=== PATIENT | male | born 1970 | race Caucasian/White ===

== ENCOUNTER → 2021-12-29 | Day surgery (SDC) | payer BC ==
[2021-12-28 13:32] LABS: BASOPHILS # (AUTO) 0.2 (0.0-0.1); BASOPHILS % 1.4 % (0.0-1.0); EOSINOPHILS # (AUTO) 0.6 (0.0-0.4); EOSINOPHILS % 5.3 % (0.0-6.0); HEMATOCRIT 50.9 % (38.2-49.6); HEMOGLOBIN 16.6 g/dL (14.0-18.0); LYMPHOCYTES % 25.6 % (18.0-39.1); MEAN CORPUSCULAR HEMOGLOBIN 32.2 pg (28-32); MEAN CORPUSCULAR HGB CONC 32.6 g/dL (31-35); MEAN CORPUSCULAR VOLUME 98.6 fL (81-99); MONOCYTES # (AUTO) 1.2 (0.2-0.8); MONOCYTES % 10.2 % (4.4-11.3); NEUTROPHILS # (AUTO) 6.7 (2.1-6.9); PLATELET COUNT 285 x10e3/uL (140-360); RED BLOOD COUNT 5.16 x10e6/uL (4.3-5.7); RED CELL DISTRIBUTION WIDTH 13.2 % (11.7-14.4)
[2021-12-28 14:03] LABS: INR 0.9
[2021-12-28 14:05] LABS: ALBUMIN 3.8 g/dL (3.5-5.0); ALBUMIN/GLOBULIN RATIO 1.1 (0.8-2.0); ANION GAP 17.5 mmol/L (8-16); CALCIUM 9.6 mg/dL (8.4-10.2); CREATININE, SERUM 1.02 mg/dL (0.72-1.25); POTASSIUM 4.5 mmol/L (3.5-5.1)
[~2021-12-29] VITALS: Ht 188 cm; Wt 127.0 kg
[2021-12-29] VITALS (11 sets, daily range): BP systolic 124–144; BP diastolic 66–78
[~2021-12-29] MED LIST: BYSTOLIC10 MG PO; CRESTOR10 MG PO; DIPHENHYDRAMINE HCL INJ 50 MG/ML VIAL ONE; FENTANYL CITRATE/PF 100MCG/2 ML INJ ONE; HEPARIN SOD/SOD CHLORIDE 2,000 ML ONE; HUMALOG SC; IOPAMIDOL 370 MG/ML 100 ML INFUS..BTL INJ ONE; KRILL OIL 1,001 EACH PO; LEVEMIR FL100 UNIT/1 SC; LIDOCAINE HCL 1% LOCAL INJ 20 ML VIAL ONE; METHYLPREDNISOLONE SOD SUCC 125 MG/2ML VIAL ONE; MIDAZOLAM HCL 2 MG/2 ML VIAL ONE; NITROGLYCERIN/D5W 200 MCG/ML 250 ML ONE; OMEPRAZOLE40 MG PO; OZEMPIC0.25 MG/0. SC; SODIUM CHLORIDE 0.9% 1000ML 1,000 ML ONE; TRIAMTERENE-HCTZ1 EA PO; VERAPAMIL HCL 2.5 MG/ML 2 ML VIAL ONE; VIT B12 PO; VIT D PO; XIGDUO XR 5 MG1 EACH PO
== END | disposition home or self-care (01) ==
LOC: CATH LAB 06:56
PROVIDERS: ATTEND Internal Medicine Cardiovascular Disease
DX: I25.10 Atherosclerotic heart disease of native coronary artery without angina pectoris (principal); R94.39 Abnormal result of other cardiovascular function study; R94.31 Abnormal electrocardiogram [ECG] [EKG]; R55 Syncope and collapse; I10 Essential (primary) hypertension; J44.9 Chronic obstructive pulmonary disease, unspecified; E11.9 Type 2 diabetes mellitus without complications; E78.00 Pure hypercholesterolemia, unspecified; F17.200 Nicotine dependence, unspecified, uncomplicated; Z88.6 Allergy status to analgesic agent; Z01.812 Encounter for preprocedural laboratory examination; Z20.822 Contact with and (suspected) exposure to COVID-19; Z79.4 Long term (current) use of insulin; Z79.899 Other long term (current) drug therapy; Z68.35 Body mass index [BMI] 35.0-35.9, adult; Z82.49 Family history of ischemic heart disease and other diseases of the circulatory system; Z83.3 Family history of diabetes mellitus
CPT/HCPCS: 36415; 76937; 80053; 85025; 85610; 93458; C1894; J1200; J2001; J2250; J2930; J3010; J7030; Q9967; U0002; 99152

== ENCOUNTER 2022-01-27 06:45 | Inpatient (IN) | payer BC ==
[2022-01-24 11:56] LABS: BASOPHILS # (AUTO) 0.1 (0.0-0.1); BASOPHILS % 1.3 % (0.0-1.0); EOSINOPHILS # (AUTO) 0.5 (0.0-0.4); EOSINOPHILS % 4.3 % (0.0-6.0); HEMATOCRIT 50.3 % (38.2-49.6); HEMOGLOBIN 16.2 g/dL (14.0-18.0); LYMPHOCYTES # (AUTO) 2.9 (1.0-3.2); LYMPHOCYTES % 26.3 % (18.0-39.1); MEAN CORPUSCULAR HEMOGLOBIN 31.8 pg (28-32); MEAN CORPUSCULAR HGB CONC 32.2 g/dL (31-35); MEAN CORPUSCULAR VOLUME 98.6 fL (81-99); MONOCYTES # (AUTO) 0.9 (0.2-0.8); MONOCYTES % 8.5 % (4.4-11.3); NEUTROPHILS # (AUTO) 6.4 (2.1-6.9); NEUTROPHILS % 58.8 % (38.7-80.0); PLATELET COUNT 395 x10e3/uL (140-360); RED CELL DISTRIBUTION WIDTH 12.5 % (11.7-14.4)
[2022-01-24 12:31] LABS: ALBUMIN 3.6 g/dL (3.5-5.0); CALCIUM 9.3 mg/dL (8.4-10.2); CREATININE, SERUM 1.2 mg/dL (0.72-1.25)
[2022-01-24 12:38] LABS: INR 0.86; PROTHROMBIN TIME 12.5 seconds (11.9-14.5)
[2022-01-27] VITALS (31 sets, daily range): BP systolic 113–145; BP diastolic 56–83
[~2022-01-27] VITALS: Ht 188 cm; Wt 131.1 kg
[~2022-01-27 06:45] MED LIST changes: -DIPHENHYDRAMINE HCL INJ 50 MG/ML VIAL ONE; -FENTANYL CITRATE/PF 100MCG/2 ML INJ ONE; -HEPARIN SOD/SOD CHLORIDE 2,000 ML ONE; -IOPAMIDOL 370 MG/ML 100 ML INFUS..BTL INJ ONE; -LIDOCAINE HCL 1% LOCAL INJ 20 ML VIAL ONE; -METHYLPREDNISOLONE SOD SUCC 125 MG/2ML VIAL ONE; -MIDAZOLAM HCL 2 MG/2 ML VIAL ONE; -NITROGLYCERIN/D5W 200 MCG/ML 250 ML ONE; -SODIUM CHLORIDE 0.9% 1000ML 1,000 ML ONE; -VERAPAMIL HCL 2.5 MG/ML 2 ML VIAL ONE
[2022-01-27] MEDS ORDERED: HEPARIN SOD (PORCINE) 1000 UNIT/ML 30ML ONE (07:06)
[2022-01-27] MEDS ORDERED: SODIUM CHLORIDE 0.9% 1000ML 1,000 ML ONE ×2 (07:07→08:39)
[2022-01-27] MEDS ORDERED: NITROGLYCERIN/D5W 200 MCG/ML 250 ML ONE (07:07)
[2022-01-27] MEDS ORDERED: HEPARIN SOD/SOD CHLORIDE 2,000 ML ONE (07:07)
[2022-01-27] MEDS ORDERED: IOPAMIDOL 370 MG/ML 100 ML INFUS..BTL INJ ONE ×2 (07:07→08:47)
[2022-01-27] MEDS ORDERED: HYZAAR 100-12.1 EACH (07:23)
[2022-01-27] MEDS ORDERED: LIDOCAINE HCL 1% LOCAL INJ 20 ML VIAL ONE ×2 (08:08→09:06)
[2022-01-27] MEDS ORDERED: VERAPAMIL HCL 2.5 MG/ML 2 ML VIAL ONE ×2 (08:14→08:39)
[2022-01-27] MEDS ORDERED: METHYLPREDNISOLONE SOD SUCC 125 MG/2ML VIAL ONE (08:22)
[2022-01-27] MEDS ORDERED: DIPHENHYDRAMINE HCL INJ 50 MG/ML VIAL ONE (08:22)
[2022-01-27] MEDS ORDERED: FENTANYL CITRATE/PF 100MCG/2 ML INJ ONE ×3 (08:23→10:26)
[2022-01-27] MEDS ORDERED: MIDAZOLAM HCL 2 MG/2 ML VIAL ONE ×5 (08:23→10:26)
[2022-01-27] MEDS ORDERED: DIPHENHYDRAMINE HCL INJ 50 MG/ML VIAL IV ONE (08:30)
[2022-01-27] MEDS ORDERED: METHYLPREDNISOLONE SOD SUCC 125 MG/2ML VIAL IV ONE (08:30)
[2022-01-27] MEDS ORDERED: TICAGRELOR 90 MG TABLET ONE (10:06)
[2022-01-27] MEDS ORDERED: ASPIRIN 325 MG TAB ONE (10:06)
[2022-01-27] MEDS ORDERED: EPTIFIBATIDE 75mg 100ML 100 ML ONE ×3 (10:17→23:53)
[2022-01-27] MEDS ORDERED: EPTIFIBATIDE 0 ML ONE (10:17)
[2022-01-27] MEDS ORDERED: HEPARIN SOD/SOD CHLORIDE 1,000 ML ONE (10:17)
[2022-01-27] MEDS ORDERED: EPTIFIBATIDE 30 ML ONE (10:22)
[2022-01-27] MEDS ORDERED: Morphine 4mg INJECTION 4 MG/ML INJ ONE ×2 (11:03→16:12)
[2022-01-27] MEDS: HYDROCODONE/APAP 5MG-325MG TAB PO PRN ×2 (12:34→22:47)
[2022-01-27] MEDS: Morphine 4mg INJECTION 4 MG/ML INJ IV PRN ×3 (12:34→22:24)
[2022-01-27] MEDS: HEPARIN 25,000 UNIT 1,000 UNIT in DEXTROSE 5% 250ML 250 ML IV SCH ×2 (13:52→20:45)
[2022-01-27] MEDS ORDERED: EPTIFIBATIDE 75mg 100ML 100 ML IV ONE (18:30)
[2022-01-27] MEDS ORDERED: CRESTOR 10MG PO SCH (21:00)
[2022-01-28] VITALS (27 sets, daily range): BP systolic 102–160; BP diastolic 54–104
[2022-01-28 03:03] LABS: BASOPHILS # (AUTO) 0.1 (0.0-0.1); BASOPHILS % 0.3 % (0.0-1.0); EOSINOPHILS % 0.1 % (0.0-6.0); HEMATOCRIT 46.9 % (38.2-49.6); HEMOGLOBIN 15.4 g/dL (14.0-18.0); LYMPHOCYTES # (AUTO) 2.3 (1.0-3.2); LYMPHOCYTES % 12.9 % (18.0-39.1); MEAN CORPUSCULAR HEMOGLOBIN 31.6 pg (28-32); MEAN CORPUSCULAR HGB CONC 32.8 g/dL (31-35); MEAN CORPUSCULAR VOLUME 96.1 fL (81-99); MONOCYTES # (AUTO) 1.1 (0.2-0.8); NEUTROPHILS # (AUTO) 14.2 (2.1-6.9); NEUTROPHILS % 79.9 % (38.7-80.0); PLATELET COUNT 372 x10e3/uL (140-360); RED BLOOD COUNT 4.88 x10e6/uL (4.3-5.7); RED CELL DISTRIBUTION WIDTH 12.5 % (11.7-14.4)
[2022-01-28 03:19] LABS: ANION GAP 15.7 mmol/L (8-16); CALCIUM 8.9 mg/dL (8.4-10.2); CREATININE, SERUM 1.16 mg/dL (0.72-1.25); POTASSIUM 4.7 mmol/L (3.5-5.1)
[2022-01-28] MEDS: HEPARIN 25,000 UNIT 1,000 UNIT in DEXTROSE 5% 250ML 250 ML IV SCH ×2 (03:28→10:25)
[2022-01-28] MEDS ORDERED: HEPARIN 25,000 UNIT DRIP IV ONE (04:43)
[2022-01-28] MEDS: Morphine 4mg INJECTION 4 MG/ML INJ IV PRN (08:09)
[2022-01-28] MEDS: TICAGRELOR 90 MG TABLET PO SCH ×2 (08:09→17:18)
[2022-01-28] MEDS: HYDROCODONE/APAP 5MG-325MG TAB PO PRN (10:19)
[2022-01-28] MEDS ORDERED: FENTANYL CITRATE/PF 100MCG/2 ML INJ ONE (14:25)
[2022-01-28] MEDS ORDERED: MIDAZOLAM HCL 2 MG/2 ML VIAL ONE (14:25)
[2022-01-28] MEDS ORDERED: LIDOCAINE HCL 1% LOCAL INJ 20 ML VIAL ONE (14:26)
[2022-01-28] MEDS ORDERED: IOPAMIDOL 370 MG/ML 100 ML INFUS..BTL INJ ONE (14:26)
[2022-01-28] MEDS ORDERED: SODIUM CHLORIDE 0.9% 1000ML 1,000 ML ONE (14:26)
[2022-01-28] MEDS ORDERED: HEPARIN SOD (PORCINE) 1000 UNIT/ML 30ML ONE (14:26)
[2022-01-28] MEDS ORDERED: NITROGLYCERIN/D5W 200 MCG/ML 250 ML ONE (14:27)
[2022-01-28] MEDS ORDERED: HEPARIN SOD/SOD CHLORIDE 2,000 ML ONE (14:27)
[2022-01-28] MEDS ORDERED: VERAPAMIL HCL 2.5 MG/ML 2 ML VIAL ONE (14:28)
[2022-01-28] MEDS ORDERED: METHYLPREDNISOLONE SOD SUCC 125 MG/2ML VIAL ONE (14:49)
[2022-01-28] MEDS ORDERED: DIPHENHYDRAMINE HCL INJ 50 MG/ML VIAL ONE ×2 (14:49→15:02)
[2022-01-28] MEDS ORDERED: Morphine 4mg INJECTION 4 MG/ML INJ ONE (15:02)
[2022-01-28] MEDS ORDERED: BRILINTA90 MG PO (16:28)
== END 2022-01-28 20:25 | disposition home or self-care (01) | DRG 247 ==
LOC: CATH LAB 06:45 → ICU 17:00
PROVIDERS: ADMIT Internal Medicine Cardiovascular Disease; ATTEND Internal Medicine Cardiovascular Disease
PROC: 027035Z Dilation of Coronary Artery, One Artery with Two Drug-eluting Intraluminal Devices, Percutaneous Approach (ICD-10-PCS; principal; 2022-01-27)
PROC: 02C03Z7 Extirpation of Matter from Coronary Artery, One Artery, Orbital Atherectomy Technique, Percutaneous Approach (ICD-10-PCS; 2022-01-27)
PROC: 4A023N7 Measurement of Cardiac Sampling and Pressure, Left Heart, Percutaneous Approach (ICD-10-PCS; 2022-01-27)
PROC: B2111ZZ Fluoroscopy of Multiple Coronary Arteries using Low Osmolar Contrast (ICD-10-PCS; 2022-01-27)
PROC: B2151ZZ Fluoroscopy of Left Heart using Low Osmolar Contrast (ICD-10-PCS; 2022-01-27)
PROC: B240ZZ3 Ultrasonography of Single Coronary Artery, Intravascular (ICD-10-PCS; 2022-01-27)
PROC: 027034Z Dilation of Coronary Artery, One Artery with Drug-eluting Intraluminal Device, Percutaneous Approach (ICD-10-PCS; 2022-01-28)
PROC: B2111ZZ Fluoroscopy of Multiple Coronary Arteries using Low Osmolar Contrast (ICD-10-PCS; 2022-01-28)
DX: I25.10 Atherosclerotic heart disease of native coronary artery without angina pectoris (principal); T82.867A Thrombosis due to cardiac prosthetic devices, implants and grafts, initial encounter; E11.9 Type 2 diabetes mellitus without complications; I10 Essential (primary) hypertension; E78.5 Hyperlipidemia, unspecified; E66.9 Obesity, unspecified; K21.9 Gastro-esophageal reflux disease without esophagitis; Z82.49 Family history of ischemic heart disease and other diseases of the circulatory system; Z72.0 Tobacco use; Z68.37 Body mass index [BMI] 37.0-37.9, adult; Z79.4 Long term (current) use of insulin
CPT/HCPCS: 33210; 36415; 76937; 80048; 80053; 85025; 85610; 85730; 92928; 92933; 92973; 92978; 93454; 93458; 99152; 99153; 99251; C1724; C1725; C1753; C1757; C1760; C1769; C1874; C1887; J1200; J1327; J1644; J2001; J2250; J2270; J2930; J3010; J7030; Q9967

== ENCOUNTER → 2022-06-16 | Day surgery (SDC) | payer BC ==
[2022-06-15 08:55] LABS: BASOPHILS # (AUTO) 0.1 (0.0-0.1); BASOPHILS % 1.3 % (0.0-1.0); EOSINOPHILS # (AUTO) 0.4 (0.0-0.4); EOSINOPHILS % 4.7 % (0.0-6.0); HEMATOCRIT 48.7 % (38.2-49.6); HEMOGLOBIN 15.7 g/dL (14.0-18.0); LYMPHOCYTES # (AUTO) 2.3 (1.0-3.2); LYMPHOCYTES % 25.6 % (18.0-39.1); MEAN CORPUSCULAR HEMOGLOBIN 30.9 pg (28-32); MEAN CORPUSCULAR HGB CONC 32.2 g/dL (31-35); MEAN CORPUSCULAR VOLUME 95.9 fL (81-99); MONOCYTES # (AUTO) 0.9 (0.2-0.8); MONOCYTES % 9.6 % (4.4-11.3); NEUTROPHILS # (AUTO) 5.3 (2.1-6.9); NEUTROPHILS % 58.4 % (38.7-80.0); PLATELET COUNT 271 x10e3/uL (140-360); RED BLOOD COUNT 5.08 x10e6/uL (4.3-5.7); RED CELL DISTRIBUTION WIDTH 12.7 % (11.7-14.4)
[2022-06-15 09:15] LABS: INR 0.83; PARTIAL THROMBOPLASTIN TIME 27.4 seconds (23.8-35.5); PROTHROMBIN TIME 12.2 seconds (11.9-14.5)
[2022-06-15 09:20] LABS: ALBUMIN 3.8 g/dL (3.5-5.0); ALBUMIN/GLOBULIN RATIO 1.1 (0.8-2.0); ANION GAP 15.2 mmol/L (8-16); CREATININE, SERUM 1.16 mg/dL (0.72-1.25); POTASSIUM 4.2 mmol/L (3.5-5.1)
[~2022-06-16] VITALS: Ht 188 cm; Wt 131.5 kg
[2022-06-16] VITALS (12 sets, daily range): BP systolic 112–138; BP diastolic 61–76
[~2022-06-16] MED LIST changes: +ASPIRIN 325 MG TAB ONE; +BRILINTA90 MG PO; +DIPHENHYDRAMINE HCL 25 MG CAP ONE; +FENTANYL CITRATE/PF 100MCG/2 ML INJ ONE; +HEPARIN SOD (PORCINE) 1000 UNIT/ML 30ML ONE; +HEPARIN SOD/SOD CHLORIDE 2,000 ML ONE; +HYZAAR 100-12.1 EACH; +IOPAMIDOL 370 MG/ML 100 ML INFUS..BTL INJ ONE; +LIDOCAINE HCL 2% LOCAL INJ 5 ML SDV VIAL INJ ONE; +METHYLPREDNISOLONE SOD SUCC 125 MG/2ML VIAL ONE; +MIDAZOLAM HCL 2 MG/2 ML VIAL ONE; +NITROGLYCERIN/D5W 200 MCG/ML 250 ML ONE; +SODIUM CHLORIDE 0.9% 1000ML 1,000 ML ONE; +TICAGRELOR 90 MG TABLET ONE; +VERAPAMIL HCL 2.5 MG/ML 2 ML VIAL ONE
== END | disposition home or self-care (01) ==
LOC: CATH LAB 09:26
PROVIDERS: ATTEND Internal Medicine Cardiovascular Disease
DX: I25.10 Atherosclerotic heart disease of native coronary artery without angina pectoris (principal); R94.39 Abnormal result of other cardiovascular function study; I10 Essential (primary) hypertension; R55 Syncope and collapse; J44.9 Chronic obstructive pulmonary disease, unspecified; E78.5 Hyperlipidemia, unspecified; E11.9 Type 2 diabetes mellitus without complications; F17.210 Nicotine dependence, cigarettes, uncomplicated; Z01.812 Encounter for preprocedural laboratory examination; Z79.4 Long term (current) use of insulin; Z79.899 Other long term (current) drug therapy; Z68.38 Body mass index [BMI] 38.0-38.9, adult; Z95.5 Presence of coronary angioplasty implant and graft; Z82.49 Family history of ischemic heart disease and other diseases of the circulatory system; Z83.3 Family history of diabetes mellitus
CPT/HCPCS: 36415 ×2; 80053; 82948; 85025; 85610; 85730; 92928; C1725; C1769; C1874; C1887; J1644; J2001; J2250; J2930; J3010; J7030; Q9967; 93454; 99152; 99153

== ENCOUNTER 2024-07-30 10:59 | Day surgery (SDC) | payer BC ==
[2024-07-30] VITALS (14 sets, daily range): BP systolic 114–134; BP diastolic 59–78; PULSE 65–73; RESP 8–19; TEMP 96.6–97; O2SAT 95–99
[~2024-07-30] VITALS: Ht 188 cm; Wt 136.1 kg
[~2024-07-30 10:59] MED LIST changes: -ASPIRIN 325 MG TAB ONE; +COREG12.5 MG PO; -DIPHENHYDRAMINE HCL 25 MG CAP ONE; -FENTANYL CITRATE/PF 100MCG/2 ML INJ ONE; -HEPARIN SOD (PORCINE) 1000 UNIT/ML 30ML ONE; -HEPARIN SOD/SOD CHLORIDE 2,000 ML ONE; +HYZAAR 100-251 EACH PO; -IOPAMIDOL 370 MG/ML 100 ML INFUS..BTL INJ ONE; -LIDOCAINE HCL 2% LOCAL INJ 5 ML SDV VIAL INJ ONE; -METHYLPREDNISOLONE SOD SUCC 125 MG/2ML VIAL ONE; -MIDAZOLAM HCL 2 MG/2 ML VIAL ONE; +MOUNJARO2.5 MG/0.5 SC; -NITROGLYCERIN/D5W 200 MCG/ML 250 ML ONE; -SODIUM CHLORIDE 0.9% 1000ML 1,000 ML ONE; -TICAGRELOR 90 MG TABLET ONE; +TRESIBA100 UNIT/1 SC; -VERAPAMIL HCL 2.5 MG/ML 2 ML VIAL ONE; +XIGDUO XR 10 M1 EAC1 PO
[2024-07-30 11:55] LABS: BASOPHILS # (AUTO) 0.1 (0.0-0.1); BASOPHILS % 0.9 % (0.0-1.0); EOSINOPHILS # (AUTO) 0.5 (0.0-0.4); EOSINOPHILS % 4.9 % (0.0-6.0); HEMATOCRIT 48.5 % (38.2-49.6); HEMOGLOBIN 15.7 g/dL (14.0-18.0); LYMPHOCYTES # (AUTO) 2.2 (1.0-3.2); LYMPHOCYTES % 22.4 % (18.0-39.1); MEAN CORPUSCULAR HEMOGLOBIN 30.7 pg (28-32); MEAN CORPUSCULAR HGB CONC 32.4 g/dL (31-35); MEAN CORPUSCULAR VOLUME 94.9 fL (81-99); NEUTROPHILS # (AUTO) 5.9 (2.1-6.9); NEUTROPHILS % 61.4 % (38.7-80.0); PLATELET COUNT 261 x10e3/uL (140-360); RED BLOOD COUNT 5.11 x10e6/uL (4.3-5.7); RED CELL DISTRIBUTION WIDTH 13.5 % (11.7-14.4); WHITE BLOOD COUNT 9.63 x10e3/uL (4.8-10.8)
[2024-07-30 12:13] LABS: ALBUMIN 3.7 g/dL (3.5-5.0); ALBUMIN/GLOBULIN RATIO 1.1 (0.8-2.0); ANION GAP 14.7 mmol/L (8-16); BILIRUBIN,TOTAL 0.5 mg/dL (0.2-1.2); CALCIUM 9.3 mg/dL (8.4-10.2); CREATININE, SERUM 1.11 mg/dL (0.72-1.25); POTASSIUM 3.7 mmol/L (3.5-5.1); TOTAL PROTEIN 7.1 g/dL (6.5-8.1)
[2024-07-30 12:24] LABS: CHOL/HDL RATIO 2.9 (3.9-4.7)
[2024-07-30] MEDS ORDERED: HEPARIN SOD (PORCINE) 1000 UNIT/ML 30ML ONE (12:56)
[2024-07-30] MEDS ORDERED: VERAPAMIL HCL 2.5 MG/ML 2 ML VIAL ONE (12:56)
[2024-07-30] MEDS ORDERED: IOPAMIDOL 370 MG/ML 100 ML INFUS..BTL INJ ONE (12:57)
[2024-07-30] MEDS ORDERED: HEPARIN SOD/SOD CHLORIDE 2,000 ML ONE (12:57)
[2024-07-30] MEDS ORDERED: SODIUM CHLORIDE 0.9% 1000ML 1,000 ML ONE (12:58)
[2024-07-30] MEDS ORDERED: NITROGLYCERIN/D5W 200 MCG/ML 250 ML ONE (12:58)
[2024-07-30] MEDS: DIPHENHYDRAMINE HCL 25 MG CAP ONE (13:07)
[2024-07-30] MEDS: METHYLPREDNISOLONE SOD SUCC 125 MG/2ML VIAL ONE (13:07)
[2024-07-30] MEDS: FAMOTIDINE 20 MG/2 ML VIAL IV ONE (13:08)
[2024-07-30] MEDS ORDERED: LIDOCAINE HCL 2% LOCAL 20 ML VIAL ONE (13:23)
[2024-07-30] MEDS ORDERED: MIDAZOLAM HCL 2 MG/2 ML VIAL ONE ×2 (13:55→14:20)
[2024-07-30] MEDS ORDERED: FENTANYL CITRATE/PF 100MCG/2 ML INJ ONE (13:55)
== END 2024-07-30 17:05 | disposition home or self-care (01) ==
LOC: CATH LAB 10:59
PROVIDERS: ATTEND Internal Medicine
DX: I25.10 Atherosclerotic heart disease of native coronary artery without angina pectoris (principal); R94.39 Abnormal result of other cardiovascular function study; I49.3 Ventricular premature depolarization; I73.89 Other specified peripheral vascular diseases; E78.00 Pure hypercholesterolemia, unspecified; Z95.5 Presence of coronary angioplasty implant and graft; E11.9 Type 2 diabetes mellitus without complications; J44.9 Chronic obstructive pulmonary disease, unspecified; Z88.6 Allergy status to analgesic agent; Z91.013 Allergy to seafood; Z79.4 Long term (current) use of insulin; Z79.85 Long-term (current) use of injectable non-insulin antidiabetic drugs; Z79.84 Long term (current) use of oral hypoglycemic drugs; Z79.899 Other long term (current) drug therapy; Z68.39 Body mass index [BMI] 39.0-39.9, adult; Z82.49 Family history of ischemic heart disease and other diseases of the circulatory system; Z83.3 Family history of diabetes mellitus
CPT/HCPCS: 36415; 76937; 80053; 80061; 82948; 85025; 93458; C1887; J1644; J2003; J2250; J2919; J3010; J7030; Q9967; 99152